=== PATIENT | female | born 1945 | race American Indian/Alaskan Native ===

== ENCOUNTER 2018-06-30 13:20 | Emergency (ER) | payer MEDICARE ==
--- NOTE | 2018-06-30 13:29 | Emergency Department Report ---
Blank Doc - Documentation Documentation: This is a 73-year-old female that presents with left sided neck pain that radi ates to left upper arm. Stated that last month she was falling and tried to break her fall by holding onto a rail. Denies any trauma or injuries. Exam: left lateral cervical paraspinal tenderness This initial assessment diagnostic orders/clinical plan/treatment(s) is/are subject to change based on patient's health status, clinical progression and re- assessment by fellow clinical providers in the ED. Further treatment and workup at subsequent clinical providers discretion. Patient/guardians urged not to elope from ED s their condition may be serious if not clinically assessed and managed. Initial orders include: 1-Patient sent to [facility] for further evaluation and treatment 2- xray of cervical spine
[2018-06-30] MEDS ORDERED: TORADOL IM ONE (15:14)
[2018-06-30] MEDS ORDERED: DECADRON IM STA (15:14)
--- NOTE | 2018-06-30 15:14 | Emergency Department Report ---
ED Neck Pain/Injury HPI - General Chief Complaint: Extremity Injury, Upper Stated Complaint: (L) ARM PAIN Time Seen by Provider: 06/30/18 13:27 Mode of arrival: Ambulatory Limitations: No Limitations - History of Present Illness Initial Comments: This is a 73-year-old female here report that she has left neck pain and it is going down her left arm. She said it started last month that she went to a clinic and they told her that she is to follow up with orthopedic and then she had some muscle strain. She said she had a neck injury prior to this. Denies any chest pain or shortness of breath. Denies any heart disease. She has a history of GERD and hypertension. Denies any fever or chills. Denies any trauma. Pain is 8/10 and it comes and goes and achy to her arm. Pain is exacerbated by movement and better with rest. She said they gave her pain medication at the clinic that she went to and she thinks it was Motrin. She does have a primary care doctor but did not see her primary care doctor as yet. MD Complaint: neck pain (pelvic) Onset/Timin -: month(s) Place: home (right upper extremity) Radiation: left upper extremity Severity: moderate Severity scale (0 -10): 8 Quality: aching Consistency: intermittent Improves With: medication OTC/prescribe, other (rest) Worsens With: movement of extremity, movement of neck Context: unknown Associated Symptoms: other (no chest pain). denies: headache, fever, numbness, tingling, weakness, vertigo, difficulty walking, swollen glands, difficulty swallowing, nausea, vomiting Treatments Prior to Arrival: none - Related Data Previous Rx's Medication Instructions Recorded Last Taken Type Ibuprofen [Motrin] 600 mg PO Q8H PRN #12 tablet 06/30/18 Unknown Rx traMADol [Ultram 50 MG tab] 50 mg PO Q6HR PRN #12 tablet 06/30/18 Unknown Rx Allergies Allergy/AdvReac Type Severity Reaction Status Date / Time No Known Allergies Allergy Unverified 06/30/18 15:13 ED Review of Systems ROS: Stated complaint: (L) ARM PAIN Other details as noted in HPI Constitutional: denies: chills ENT: denies: throat pain, dental pain, congestion Respiratory: denies: cough, shortness of breath, wheezing Cardiovascular: denies: chest pain, palpitations, dyspnea on exertion, edema, syncope Gastrointestinal: denies: abdominal pain, nausea, vomiting, constipation, hematemesis Genitourinary: denies: hematuria Musculoskeletal: arthralgia, myalgia. denies: back pain, joint swelling Skin: denies: rash Neurological: denies: headache, weakness, numbness, paresthesias, confusion, abnormal gait, vertigo ED Past Medical Hx - Past Medical History Previous Medical History?: Yes Hx Hypertension: Yes Hx CVA: No Hx Heart Attack/AMI: No Hx Congestive Heart Failure: No Hx Diabetes: Yes Hx Deep Vein Thrombosis: No Hx Pulmonary Embolism: No Hx GERD: No Hx Liver Disease: No Hx Renal Disease: No Hx of Cancer: No Hx Sickle Cell Disease: No Hx Arthritis: No Hx Headaches / Migraines: No Hx Seizures: No Hx Kidney Stones: No Hx Psychiatric Treatment: No Hx Asthma: No Hx COPD: No Hx Tuberculosis: No Hx Dementia: No Hx HIV: No - Surgical History Past Surgical History?: Yes Hx Coronary Stent: No Hx Open Heart Surgery: No Hx Pacemaker: No Hx Internal Defibrillator: No Hx Cholecystectomy: No Hx Appendectomy: No Hx Breast Surgery: No Additional Surgical History: tumor - Family History Family history: hypertension - Social History Smoking Status: Never Smoker Substance Use Type: None - Medications Home Medications: Home Medications Medication Instructions Recorded Confirmed Last Taken Type Ibuprofen [Motrin] 600 mg PO Q8H PRN #12 tablet 06/30/18 Unknown Rx traMADol [Ultram 50 MG tab] 50 mg PO Q6HR PRN #12 tablet 06/30/18 Unknown Rx ED Physical Exam - General Limitations: No Limitations General appearance: alert, in no apparent distress - Head Head exam: Present: atraumatic, normocephalic, normal inspection, other (normal exam) - Eye Eye exam: Present: normal appearance, PERRL, EOMI - Neck Neck exam: Present: normal inspection, full ROM (pain with range of motion to left neck.), other (no C-spine tenderness). Absent: tenderness, meningismus, lymphadenopathy - Expanded Neck Exam Expanded Neck exam: Absent: tenderness, midline deformity, anterior neck swelling, tracheal deviation - Respiratory Respiratory exam: Present: normal lung sounds bilaterally. Absent: respiratory distress, wheezes, rales, rhonchi, stridor, chest wall tenderness, accessory muscle use, prolonged expiratory - Cardiovascular Cardiovascular Exam: Present: regular rate, normal rhythm, normal heart sounds. Absent: systolic murmur, diastolic murmur - GI/Abdominal GI/Abdominal exam: Present: soft, normal bowel sounds. Absent: distended, tenderness, organomegaly, mass - Extremities Exam Extremities exam: Present: normal inspection, full ROM, tenderness (tenderness of 82 right arm but she has full range of motion.), normal capillary refill, other (my extremity physical exam except she has tenderness to palpate the right arm. No swelling in or erythema noted.). Absent: pedal edema, joint swelling - Back Exam Back exam: Present: normal inspection, full ROM, other (ambulates without any difficulties). Absent: tenderness, CVA tenderness (R), CVA tenderness (L), mus altaf spasm, paraspinal tenderness, vertebral tenderness, rash noted - Neurological Exam Neurological exam: Present: alert, oriented X3, normal gait, reflexes normal, other (no focal deficits). Absent: motor sensory deficit - Psychiatric Psychiatric exam: Present: normal affect, normal mood - Skin Skin exam: Present: warm, dry, intact, normal color. Absent: rash ED Course Vital Signs 06/30/18 06/30/18 06/30/18 13:24 13:28 15:25 Temperature 97.7 F 97.7 F Pulse Rate 90 90 Respiratory 18 18 Rate Blood Pressure 180/82 Blood Pressure 180/82 [Left] O2 Sat by Pulse 95 100 Oximetry 06/30/18 06/30/18 15:55 17:27 Temperature Pulse Rate 89 Respiratory 18 18 Rate Blood Pressure Blood Pressure 178/82 [Left] O2 Sat by Pulse 99 Oximetry - Reevaluation(s) Reevaluation #1: 06/30/18 16:54 patient given Decadron 10 mg IM and Toradol 30 mg IM which was negative for pain. She is also placed in a sling and follow-up with orthopedic doctor - Orthopedic Splinting/Casting Injury #1 Side: left Upper Extremity Injury Location: shoulder, upper arm Upper Extremity Immobilizer: sling/shoulder immobilize ED Medical Decision Making - Radiology Data Radiology results: report reviewed Patient had x-ray of C-spine which shows slight degeneration at C5 with some spurring otherwise normal. This was dictated by radiologist and report reviewed by myself. Findings [facility] [address] [place] [address] XRay Report Signed Patient: MANOJ DOBBINS MR#: [id number] : 1945 Acct:[id number] Age/Sex: 73 / F ADM Date: 06/30/18 Loc: ED Attending Dr: Ordering Physician: JANA PAULA NP Date of Service: 06/30/18 Procedure(s): XR spine cervical 2-3V Accession Number(s): [id number] cc: JANA PAULA NP Fluoro Time In Minutes: CERVICAL SPINE RADIOGRAPHS INDICATION: Neck pain. COMPARISON: None similar at this institution. FINDINGS: AP, lateral and open-mouth views of the cervical spine, 4 projections demonstrate grossly symmetric lateral masses and unremarkable base of the dens. Remainder dens though obscured due to overlying structures/skull. Few small radiopaque dental material. Clear visualized lung apices. Intact craniocervical articulation on the lateral view with normal prevertebral soft tissues and airway. Normal vertebral body stature, alignment and disc heights. Slight degenerative spurring as involving C5. CONCLUSION: Slightly limited, though unremarkable cervical spine radiographs, as described. Thank you for the opportunity to participate in this patient's care. Transcribed By: RS Dictated By: EM ARANA MD Electronically Authenticated By: EM ARANA MD Signed Date/Time: 06/30/18 152 DD/ 152 TD/TT: 06/30/18 1525 - Medical Decision Making This is a 73-year-old female here report that she is having in neck pain is radiating down her left arm. She she did not have any chest pain or shortness of breath. After speaking with Dr. Cao it was decided that after patient has x-ray and found degeneration to discharge patient in sling and refer her to orthopedics. X-ray of C-spine shows C5 with some degeneration. This was dictated by radiologist and report reviewed by myself. She was given Decadron 10 mg IM and Toradol 30 mg IM which helped her pain. Patient states that she felt better and was placed in shoulder sling and discharged from emergency room in stable condition with prescription for tramadol and ibuprofen. - Differential Diagnosis cervical radiculopathy, neuropathic pain, MSK pain Critical care attestation.: If time is entered above; I have spent that time in minutes in the direct care of this critically ill patient, excluding procedure time. ED Disposition Clinical Impression: Cervical radiculopathy at C5, Arthralgia of left upper arm Disposition: DC-01 TO HOME OR SELFCARE Is pt being admited?: No Does the pt Need Aspirin: No Condition: Stable Instructions: Cervical Radiculopathy (ED), Arthralgia (ED) Additional Instructions: Please follow up with orthopedic doctor as instructed. 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 Take Motrin for mild to moderate pain. Condition worsens, or chest pain, shortness of breath return to emergency room otherwise follow-up with your primary care and orthopedic doctor Prescriptions: Ibuprofen [Motrin] 600 mg PO Q8H PRN #12 tablet PRN Reason: Pain traMADol [Ultram 50 MG tab] 50 mg PO Q6HR PRN #12 tablet PRN Reason: moderate to severe pain Referrals: SANDRA BRANDON MD [Primary Care Provider] - 07/02/18 GEMA DURHAM MD [Staff Physician] - 07/02/18
--- NOTE | 2018-06-30 15:26 | XRay Report ---
CERVICAL SPINE RADIOGRAPHS INDICATION: Neck pain. COMPARISON: None similar at this institution. FINDINGS: AP, lateral and open-mouth views of the cervical spine, 4 projections demonstrate grossly symmetric lateral masses and unremarkable base of the dens. Remainder dens though obscured due to overlying structures/skull. Few small radiopaque dental material. Clear visualized lung apices. Intact craniocervical articulation on the lateral view with normal prevertebral soft tissues and airway. Normal vertebral body stature, alignment and disc heights. Slight degenerative spurring as involving C5. CONCLUSION: Slightly limited, though unremarkable cervical spine radiographs, as described. Thank you for the opportunity to participate in this patient's care.
[2018-06-30 17:28] VITALS: BP 178/82
== END 2018-06-30 17:13 | disposition home or self-care (01) ==
LOC: ED 13:20
DX: M54.12 Radiculopathy, cervical region (principal); M79.602 Pain in left arm
CPT/HCPCS: 72040; 96372; 99284; J1100; J1885